=== PATIENT | female | born 1965 | race Asian ===

== ENCOUNTER 2020-08-08 07:00 | Outpatient (CLI) | payer OTHER | END 2020-08-08 23:59 | disposition home or self-care (01) | LOC: COV 07:00 | PROVIDERS: ATTEND Surgery | DX: Z01.812 Encounter for preprocedural laboratory examination (principal); K81.1 Chronic cholecystitis; Z20.822 Contact with and (suspected) exposure to COVID-19 ==

== ENCOUNTER 2020-08-12 10:36 | Day surgery (SDC) | payer OTHER ==
[~2020-08-12 10:36] MED LIST: ceFAZolin 2 GM/50 ML 2 GM/50 ML BAG IV ONE
[2020-08-12] MEDS ORDERED: LACTATED RINGERS 1,000 ML IV ONE ×2 (10:42→13:42)
--- NOTE | 2020-08-12 11:36 | ANESTHESIA ---
Pre-Anesthesia VS, & Labs - Diagnosis cholecystitis - Procedure laparoscopic cholecystectomy Vital Signs: Temp Pulse Resp BP Pulse Ox 36.8 C 84 16 118/87 H 99 08/12/20 10:52 08/12/20 10:52 08/12/20 10:52 08/12/20 10:52 08/12/20 10:52 Height: 4 ft 11 in Weight (kg): 54.3 kg Body Mass Index: 24.1 BMI Classification: Healthy weight - NPO >8 hours - Is Patient ?: No Home Medications and Allergies Home Medications: Ambulatory Orders Ferrous Sulfate 325 mg PO ONCE 08/05/20 Glucosamine HCl 1,500 mg PO DAILY 08/05/20 Krill/[place]-3/Dha/Epa/Lipids [Krill Oil 350 mg Softgel] 1 each PO DAILY 08/05/20 Lisinopril [Zestril] 20 mg PO DAILY 08/05/20 Multivitamin 1 each PO DAILY 08/05/20 Ferrous Sulfate 325 mg PO ONCE 08/05/20 Glucosamine HCl 1,500 mg PO DAILY 08/05/20 Krill/[place]-3/Dha/Epa/Lipids [Krill Oil 350 mg Softgel] 1 each PO DAILY 08/05/20 Lisinopril [Zestril] 20 mg PO DAILY 08/05/20 Multivitamin 1 each PO DAILY 08/05/20 Allergies/Adverse Reactions: Allergies Allergy/AdvReac Type Severity Reaction Status Date / Time No Known Drug Allergies Allergy Verified 08/05/20 15:14 Anes History & Medical History - Anesthetic History Anesthesia Complications: reports: No previous complications - Medical History Cardiovascular: reports: Hypertension Pulmonary: reports: None Gastrointestinal: reports: None Urinary: reports: None Musculoskeletal: reports: None Endocrine/Autoimmune: reports: Other Skin: reports: None History of Cancer?: No - Surgical History Gynecologic: reports: Tubal ligation Orthopedic: reports: Rotator cuff repair Exam General: Alert Dental: WNL Mouth Opening: Greater than 4 Fingerbreadths Neck Mobility: Limited Mallampati classification: II Thyromental Distance: greater than 6 cm Respiratory: Lungs clear Cardiovascular: Regular rate, Normal S1, Normal S2 Mental/Cognitive Status: Alert/Oriented X3 Plan Anesthesia Type: General Consent for Procedure(s) Verified and Reviewed: Yes Code Status: Attempt Resuscitation ASA classification: 2-Mild systemic disease Is this case an emergency?: No
[2020-08-12] MEDS ORDERED: METOCLOPRAMIDE 10 MG/2 ML VIAL IVP PRN (11:41)
[2020-08-12] MEDS ORDERED: ATROPINE ABBOJECT 1 MG/10 ML SYRINGE IVP PRN (11:41)
[2020-08-12] MEDS ORDERED: ePHEDrine 50 MG/ML VIAL IVP PRN (11:41)
[2020-08-12] MEDS ORDERED: ONDANSETRON 4 MG/2 ML VIAL IVP PRN ×2 (11:41→13:54)
[2020-08-12] MEDS ORDERED: fentaNYL 100 MCG/2 ML VIAL IVP PRN (11:41)
[2020-08-12] MEDS ORDERED: MORPHINE 2 MG/ML CARPUJECT IVP PRN (11:41)
[2020-08-12] MEDS ORDERED: HYDROmorphone 0.5 MG/0.5 ML SYRINGE IVP PRN (11:41)
[2020-08-12] MEDS ORDERED: NALOXONE 0.4 MG/ML VIAL IVP PRN (11:41)
[2020-08-12] MEDS ORDERED: PROPOFOL 200 MG/20 ML VIAL IVP ONE (11:44)
[2020-08-12] MEDS ORDERED: LIDOCAINE-MPF 2% 5 ML VIAL ONE (11:44)
[2020-08-12] MEDS ORDERED: ROCURONIUM 50 MG/5 ML VIAL ONE (11:44)
[2020-08-12] MEDS ORDERED: MIDAZOLAM 2 MG/2 ML VIAL ONE (11:45)
[2020-08-12] MEDS ORDERED: fentaNYL 100 MCG/2 ML VIAL ONE (11:45)
[2020-08-12] MEDS ORDERED: BUPIVACAINE 0.25% PF 30 ML VIAL ONE (11:55)
[2020-08-12] MEDS ORDERED: LACTATED RINGERS 1,000 ML IV SCH ×2 (12:00→14:00)
[2020-08-12] MEDS ORDERED: BUPIVACAINE 0.25% PF 30 ML VIAL SUBQ ONE ×2 (12:04→13:23)
[2020-08-12] MEDS ORDERED: ONDANSETRON 4 MG/2 ML VIAL ONE (12:37)
[2020-08-12] MEDS ORDERED: DEXAMETHASONE 4 MG/ML VIAL ONE (12:37)
[2020-08-12] MEDS ORDERED: ACETAMINOPHEN 1,000 MG/100 ML 100 ML IV ONE (12:37)
[2020-08-12] MEDS ORDERED: KETOROLAC 30 MG/ML VIAL ONE (12:37)
[2020-08-12] MEDS ORDERED: oxyCODONE 5 MG TABLET PO PRN (13:54)
[2020-08-12] MEDS ORDERED: HYDROcod/ACETAM 5/325 MG TABLET PO PRN (13:54)
--- NOTE | 2020-08-12 13:54 | OPERATIVE REPORT ---
Operative Report - General Procedure Date: 08/12/20 Planned Procedure: lap minerva Pre-Op Diagnosis: chronic cholecystitis Procedure Performed: lap minerva Post Op Diagnosis: same - Procedure Note Primary Surgeon: allie crooks Anesthesia Technique: General ET tube, Local Pathology: gb Estimated Blood Loss (mL): 5 Drain/Tube Type: Other (none) Findings: obstructed gb Complications: none
[2020-08-12] MEDS: HYDROmorphone 1 MG/ML CARPUJECT ONE ×2 (13:55→14:05)
--- NOTE | 2020-08-12 15:01 | ANESTHESIA POST OP EVALUATION ---
Anesthesia Post Eval - Post Anesthesia Eval Vitals: Last Vital Signs Temp 36.6 C 08/12/20 14:25 Pulse 65 08/12/20 14:25 Resp 10 L 08/12/20 14:25 BP 141/82 H 08/12/20 14:25 Pulse Ox 98 08/12/20 14:25 CV Function Including HR & BP: Stable Pain Control: Satisfactory Nausea & Vomiting: Negative Mental Status: Baseline Respiratory Status: Airway Patent Hydration Status: Satisfactory Anesthesia Complications: None
[2020-08-12] MEDS ORDERED: HYDROcod/ACETAM 5/325 MG TABLET ONE (15:09)
[2020-08-12 16:12] VITALS: BP 131/75
--- NOTE | 2020-08-13 04:01 | OPERATIVE REPORT ---
DATE OF SERVICE: 08/12/2020 Physician: Rock Mccormick MD PREOPERATIVE DIAGNOSIS: Chronic cholecystitis. POSTOPERATIVE DIAGNOSIS: Chronic cholecystitis. PROCEDURE PERFORMED: Laparoscopic cholecystectomy. SURGEON: Rock Mccormick MD TEACHER [place]: None. ANESTHESIA 1. General endotracheal anesthesia. 2. Local anesthesia with Marcaine. COMPLICATIONS: None. SPECIMENS: Gallbladder. ESTIMATED BLOOD LOSS: 5 mL DRAINS: None. COMPLICATIONS: None. FINDINGS 1. Healthy-appearing liver. 2. Obstructed gallbladder with numerous 8 mm gallstones. 3. Narrow cystic duct. 4. Normal diameter of common hepatic and common bile duct. INDICATIONS FOR PROCEDURE: The patient is a healthy 55-year-old with classic chronic cholecystitis-t ype symptoms. She has not had signs or symptoms of choledocholithiasis. She presents for cholecyste ctomy. Risks discussed, alternatives discussed, all questions answered and consent obtained. DETAILS OF PROCEDURE: The patient was properly identified and brought to the operating room and plac ed in supine position. She had voided prior to surgery. General endotracheal anesthesia was induced . Orogastric tube and sequential compression devices were placed. She was prepped and draped in a s terile fashion and given preoperative antibiotics. Local anesthetic was given to incision areas. An infraumbilical incision was made. Dissection proceeded down to the fascia. The fascia was incised, lifted upwards and abdomen entered with the Veress needle. CO2 was insufflated to a pressure of 15. An 11 mm trocar was placed, followed by a 30-degree scope. There was no evidence of injury from Ve ress needle or trocar placement. Under direct vision, two 5 mm trocars were placed in the right uppe r quadrant and an 11 mm trocar was placed in the epigastrium. She had a distended gallbladder. The body of the gallbladder was retracted anterior. Lateral attachments were partially taken down furthe r, mobilizing the gallbladder off from the common hepatic duct, which was easily evident. The infund ibulum or Germain's pouch area released of its peritoneal-type attachments, mobilizing it off from t he common hepatic duct. The infundibulum was then retracted right lateral and caudad. She had numer ous obstructing stones. These were slightly milked upwards. With minimal use of cautery, the cystic duct and cystic artery both were clearly identified. A large bare cystic plate area and window were carefully created. She had both an anterior, posterior cystic artery. The cystic duct was clipped at the gallbladder and three times more slightly proximal. The anterior and posterior cystic artery branches were separately clipped at the gallbladder and twice more proximal. All three were sharply divided. The gallbladder was mobilized and brought up through the epigastric trocar site. Hemostasi s was assured. Clips were secure. Gallstones were crushed and removed, allowing extraction of the g allbladder. Trocars were removed under direct vision. Again, hemostasis was assured. Fascia at the epigastrium and the infraumbilical site was closed with running 0 Vicryl suture. Skin was closed wi th buried interrupted or running 4-0 Monocryl subcuticular suture. Dressings were applied. She uzma rated the procedure very well. TD: 08/13/2020 04:00
== END 2020-08-12 10:37 | disposition home or self-care (01) ==
LOC: SDS 10:36
PROVIDERS: ATTEND Surgery
PROC: 0FT44ZZ Resection of Gallbladder, Percutaneous Endoscopic Approach (ICD-10-PCS; principal; 2020-08-12 11:30)
DX: K80.11 Calculus of gallbladder with chronic cholecystitis with obstruction (principal); I10 Essential (primary) hypertension; E61.1 Iron deficiency; Z79.899 Other long term (current) drug therapy; Z87.891 Personal history of nicotine dependence
CPT/HCPCS: 47562; A9270; J0131; J0690; J1170; J7120

== ENCOUNTER 2022-03-05 18:04 | Outpatient (CLI) | payer OTHER | END 2022-03-05 18:05 | disposition EMS.NT | LOC: EMS 18:04 | DX: R55 Syncope and collapse (principal); R42 Dizziness and giddiness ==

== ENCOUNTER 2023-09-25 00:22 | Outpatient (CLI) | payer OTHER | END 2023-09-25 23:59 | disposition EMS.NT | LOC: EMS 00:22 | DX: R07.89 Other chest pain (principal) ==